=== PATIENT | female | born 1990 | race Caucasian/White ===

== ENCOUNTER → 2016-03-28 | Outpatient (CLI) | payer OTHER ==
[~2016-03-28] MED LIST: ATV1 PO; PRT/20 PO; SERT50TA PO
[2016-04-03 15:25] LABS: O&P SOURCE OTHER
== END | disposition home or self-care (01) ==
LOC: C.LAB 15:40
PROVIDERS: ATTEND Family Medicine
DX: R19.7 Diarrhea, unspecified (principal)

== ENCOUNTER → 2017-03-28 | Outpatient (CLI) | payer OTHER ==
[2017-03-28 16:42] LABS: BASO % 0.3 %; BASO ABS # 0.02 K/uL (0-0.2); EOS % 1.1 %; EOS ABS # 0.07 K/uL (0-0.5); HEMOGLOBIN 13.2 g/dL (12.0-16.0); IG# 0.02 K/uL (0.00-0.02); LYMPH % 27.1 %; MEAN CELL VOLUME 82.1 fL (80-100); MEAN CORPUSCULAR HEMOGLOBIN 27.8 pg (25-34); MEAN CORPUSCULAR HGB CONC 33.8 g/dl (32-36); MEAN PLATELET VOLUME 11.1 fL (7.4-10.4); MONO % 8.4 %; MONO ABS # 0.53 K/uL (0.11-0.59); NEUT % 62.8 %; NEUT ABS # 3.94 K/uL (1.4-6.5); PLATELET COUNT 180 K/uL (130-400); RED CELL DISTRIBUTION WIDTH SD 39.1 fL (36.4-46.3); WHITE BLOOD COUNT 6.28 K/uL (4.8-10.8)
[2017-03-28 18:14] LABS: ALT/SGPT 23 U/L (12-78); AST/SGOT 13 U/L (15-37); BLOOD UREA NITROGEN 16 mg/dl (7-18); CALCIUM 8.8 mg/dl (8.5-10.1); CARBON DIOXIDE 28 mmol/L (21-32); CREATININE 0.74 mg/dl (0.60-1.20); GLUCOSE 74 mg/dl (70-99); SODIUM 139 mmol/L (136-145)
[2017-03-28 18:25] LABS: ALKALINE PHOSPHATASE 49 U/L (45-117); TOTAL PROTEIN 7.5 gm/dl (6.4-8.2)
== END | disposition home or self-care (01) ==
LOC: C.LABBC 14:18
PROVIDERS: ATTEND Family Medicine
DX: K90.0 Celiac disease (principal)

== ENCOUNTER → 2017-10-14 | Outpatient (CLI) | payer OTHER ==
--- NOTE | 2017-10-14 09:39 | DIAGNOSTIC IMAGING REPORT ---
ABDOMEN COMPLETE (US) CLINICAL HISTORY: Left upper quadrant abdominal pain. COMPARISON STUDY: Splenic ultrasound June 01, 2007 and November 17, 2007. FINDINGS: Liver is sonographically normal. There is no biliary ductal dilatation. No gallstones are identified. The pancreas is within normal limits. Mild to moderate splenomegaly is similar to exam of November 16, 2017. Spleen measures 14.4 cm in maximal dimension. No perisplenic fluid is noted. Kidneys are normal. There is no hydronephrosis. There is no ascites. Caliber of the abdominal aorta is normal IMPRESSION: 1. Mild to moderate splenomegaly which is similar to exam of November 17, 2007. 2. Otherwise, normal abdominal ultrasound. Electronically signed by: Ulises Faulkner M.D. 10/14/2017 9:38 AM Dictated Date/Time: 10/14/2017 9:35 AM
== END | disposition home or self-care (01) ==
LOC: C.ULTRBC 09:10
PROVIDERS: ATTEND Family Medicine
DX: R10.12 Left upper quadrant pain (principal); R16.1 Splenomegaly, not elsewhere classified

== ENCOUNTER → 2017-10-22 | Outpatient (CLI) | payer OTHER ==
[~2017-10-22] MED LIST changes: +OPTIRAY 320 IV PRN
--- NOTE | 2017-10-22 14:55 | DIAGNOSTIC IMAGING REPORT ---
ABD WITH IV AND ORAL CONT (CT) CT DOSE: 244.22 mGycm HISTORY: Blank enlargement SPLENOMEGALY TECHNIQUE: Multiaxial CT images of the abdomen was performed following the use of intravenous and oral contrast. A dose lowering technique was utilized adhering to the principles of ALARA. COMPARISON STUDY: None. FINDINGS: Lung bases are clear. Liver spleen and pancreas are unremarkable in terms of density characteristics. Spleen is mildly prominent overall size at 10.5 cm. There are no abnormal perihepatic or perisplenic fluid collections. Bowel pattern is nonobstructive. No significant adenopathy. IMPRESSION: 1. Mild splenomegaly. 2. Otherwise negative study. The above report was generated using voice recognition software. It may contain grammatical, syntax or spelling errors. Electronically signed by: George Prabhakar M.D. 10/22/2017 2:54 PM Dictated Date/Time: 10/22/2017 2:52 PM
== END | disposition home or self-care (01) ==
LOC: C.CTS 14:07
PROVIDERS: ATTEND Family Medicine
DX: R16.1 Splenomegaly, not elsewhere classified (principal)

== ENCOUNTER → 2017-10-23 | Outpatient (CLI) | payer OTHER ==
[~2017-10-23] MED LIST changes: -OPTIRAY 320 IV PRN
[2017-10-23 17:02] LABS: BASO % 0.4 %; BASO ABS # 0.02 K/uL (0-0.2); EOS % 1.6 %; EOS ABS # 0.08 K/uL (0-0.5); HEMATOCRIT 35.5 % (37-47); HEMOGLOBIN 11.7 g/dL (12.0-16.0); IG# 0.02 K/uL (0.00-0.02); LYMPH % 26.5 %; LYMPH ABS # 1.36 K/uL (1.2-3.4); MEAN CELL VOLUME 82.6 fL (80-100); MEAN CORPUSCULAR HEMOGLOBIN 27.2 pg (25-34); MEAN PLATELET VOLUME 10.8 fL (7.4-10.4); MONO % 7.6 %; MONO ABS # 0.39 K/uL (0.11-0.59); NEUT % 63.5 %; NEUT ABS # 3.26 K/uL (1.4-6.5); PLATELET COUNT 187 K/uL (130-400); RED CELL DISTRIBUTION WIDTH CV 13.2 % (11.5-14.5); RED CELL DISTRIBUTION WIDTH SD 39.9 fL (36.4-46.3); WHITE BLOOD COUNT 5.13 K/uL (4.8-10.8)
[2017-10-23 17:34] LABS: ALBUMIN 3.9 gm/dl (3.4-5.0); ALKALINE PHOSPHATASE 45 U/L (45-117); ALT/SGPT 21 U/L (12-78); AST/SGOT 20 U/L (15-37); BLOOD UREA NITROGEN 11 mg/dl (7-18); CALCIUM 8.6 mg/dl (8.5-10.1); CARBON DIOXIDE 28 mmol/L (21-32); GLUCOSE 80 mg/dl (70-99); SODIUM 140 mmol/L (136-145); TOTAL PROTEIN 6.5 gm/dl (6.4-8.2)
[2017-10-29 20:21] LABS: ANA SCREEN TC 249X NEGATIVE (NEGATIVE)
== END | disposition home or self-care (01) ==
LOC: C.LABBC 13:10
PROVIDERS: ATTEND Family Medicine
DX: R16.1 Splenomegaly, not elsewhere classified (principal)